=== PATIENT | female | born 1990 | race Caucasian/White ===

== ENCOUNTER 2019-03-02 06:22 | Day surgery (SDC) | payer BC ==
[~2019-03-02] VITALS: Ht 167.6 cm; Wt 102.1 kg
[~2019-03-02 06:22] MED LIST: ACET500; ACYC400 PO; AMIT50; CODACE30; CRUTCH3 USE; DOXY100 PO; FOLI1 PO; GABA800; HYDACE10B PO; HYDACE5; HYDACE5 PO; IBUP600 PO; IBUP800 PO; LYRICA; META800 PO; NAPR375; NAPR500; NAPR500 PO; NAPR550 PO; NITR2TO30 TOP; Norco 5-325 Ta1 EACH PO; OMEP20ER; ORACONB PO; PREG100; PREG150 PO; PRENA1 SOFTGEL1 EACH PO; PROACE100 PO; PROM25 PO; Prenatal Compl1 EACH PO; RANI150 PO; RXHYDACE PO; RXNAPNA550 PO; RXPROACE PO; TRAZ100 PO; TRAZ50 PO; YAZ BCP; Zantac150 MG PO; [UNRECOGNIZED DRUG - OTHER]; [UNRECOGNIZED DRUG - REMARK]; [UNRECOGNIZED DRUG - REMARK]
--- NOTE | 2019-03-02 07:54 | NUR ---
03/02/19 0754 Kim Roca ORSC.JAR LOWER PREP ORSC.JJW UPPER PREP
== END 2019-03-02 09:56 | disposition home or self-care (01) ==
LOC: ORSCSDS 06:22
PROVIDERS: Obstetrics & Gynecology
PROC: 0U5F4ZZ Destruction of Cul-de-sac, Percutaneous Endoscopic Approach (ICD-10-PCS; principal; 2019-03-02 07:30)
PROC: 0UT74ZZ Resection of Bilateral Fallopian Tubes, Percutaneous Endoscopic Approach (ICD-10-PCS; principal; 2019-03-02 07:30)
DX: Z30.2 Encounter for sterilization (principal); N80.3 Endometriosis of pelvic peritoneum; E66.01 Morbid (severe) obesity due to excess calories; Z68.36 Body mass index [BMI] 36.0-36.9, adult
CPT/HCPCS: 88302; J0171; J0690; J1100; J1885; J2250; J2704; J2765; J3010; J7120

== ENCOUNTER 2023-11-17 06:12 | Day surgery (SDC) | payer BC ==
[~2023-11-17] VITALS: Ht 165.1 cm; Wt 110.9 kg
[2023-11-17] VITALS (13 sets, daily range): BP systolic 122–137; BP diastolic 75–97
[2023-11-17] MEDS ORDERED: CeFAZolin Sodium 2,000 MG in NS 100 ML IV SCH (06:25)
[2023-11-17] MEDS ORDERED: Lactated Ringer's 1,000 ML IV SCH ×2 (06:25→11:30)
--- NOTE | 2023-11-17 06:53 | NUR ---
Ambulatory in Day Surgery History, Chart, Medications and Allergies reviewed before start of procedure.Lungs clear T/O to Auscultation. Patient confirms NPO status and agrees with scheduled surgery. Patient reports completing Chlorhexadine shower X2 prior to admission to hospital.Surgical site prepped with 2% Chlorhexidine cloth wipe. Patient States Post-Procedure ride home has been arranged.
[2023-11-17] MEDS ORDERED: propofoL 20 ML IV ONE (07:15)
[2023-11-17] MEDS ORDERED: FentaNYL Citrate 50 MCG/ML 2 ML Injection ONE ×2 (07:15→10:10)
[2023-11-17] MEDS ORDERED: Midazolam HCl 1MG / ML 2ML Vial ONE (07:15)
[2023-11-17] MEDS ORDERED: Rocuronium Bromide 10 MG/ML 5ML Injection IV ONE ×2 (07:16→10:09)
--- NOTE | 2023-11-17 07:23 | NUR ---
#18 PIV PLACED TO RFA-TYPE AND SCREEN SENT. PT TEARFUL DURING IV PLACEMENT-PT STATED THAT THE PAIN SUBSIDED AFTER IV INSERTION.
[2023-11-17] MEDS ORDERED: Bupivacaine 0.5% HCl 5 MG/ML 30MLVIAL ONE (07:34)
--- NOTE | 2023-11-17 07:44 | NUR ---
PT BELONGINGS GIVEN TO HER SPOUSE SCARLET. PT CONTACTS REMAIN IN HER EYES DR. LONG GAVE PT THE OK TO DO SO.
[2023-11-17] MEDS ORDERED: Dexamethasone Sod Phos 10 MG/ML 1ML VIAL ONE (08:17)
[2023-11-17] MEDS ORDERED: Ondansetron HCl 2 MG / ML 2ML Vial ONE (08:17)
[2023-11-17] MEDS ORDERED: Ketorolac Tromethamine 30mg Vial ONE (10:09)
[2023-11-17] MEDS ORDERED: Sugammadex Sodium 200 MG/2ML SDV (100 MG/ML) ONE (10:40)
[2023-11-17] MEDS ORDERED: HYDROmorphone HCl/Pf 1MG SYR ONE ×2 (11:06→11:39)
[2023-11-17] MEDS ORDERED: HYDROmorphone HCl/Pf 1MG SYR IV PRN (11:25)
[2023-11-17] MEDS ORDERED: Simethicone 80 MG Chew PO PRN (11:25)
[2023-11-17] MEDS ORDERED: Ondansetron HCl 2 MG / ML 2ML Vial IV PRN (11:30)
[2023-11-17] MEDS ORDERED: Promethazine HCl 12.5 MG Supp PR PRN (11:30)
[2023-11-17] MEDS ORDERED: Naloxone HCl 0.4MG / ML 1ML Vial IV PRN (11:30)
[2023-11-17] MEDS ORDERED: Ondansetron 4 MG TAB PO PRN (11:30)
[2023-11-17] MEDS ORDERED: HYDROcodone 5-APAP 325 TAB PO PRN (11:30)
[2023-11-17] MEDS ORDERED: Promethazine HCl 25 MG Tab PO PRN (11:35)
[2023-11-17] MEDS ORDERED: Ketorolac Tromethamine 30mg Vial IV SCH (12:00)
--- NOTE | 2023-11-17 12:46 | NUR ---
POST-OP PATIENT ARRIVAL TO ROOM @ 1145, LAP SCITES X4 WITH WOUND GLUE CLOSURE. C/D/I. PATIENT REQUESTING CATHETER TO BE REOMVED. EMPTIED OUT 400ML FROM BAG AND DC'D. PATIENT TRIED TO VOID AND WAS UNSUCCESSFUL. PATIENT REPORTS HIGH PAIN AND NAUSEA MEDICATED AND NOW RESTING COMFORTABLY. VSS. CALL LIGHT IN REACH, IV FLUIDS RUNNING.
[2023-11-17] MEDS ORDERED: CeFAZolin Sodium 2,000 MG in NS 100 ML IV ONE (14:00)
--- NOTE | 2023-11-17 16:40 | NUR ---
SHIFT SUMMARY PATIENT AOX4, TOLERATES PO INTAKE. DENIES N/V, PAIN IS WELL MANAGED. PATIENT UP VOIDING X2 THIS SHIFT. ABD BINDER PLACED AND WALKING IN HALLS. IV IS SALINE LOCKED. SCDS IN PLACE, AND CALL LIGHT IN REACH. VITALS ARE STABLE. SPOUSE IN ROOM FOR SUPPORT. LAP SCITES ARE C/D/I. SCANT DRNG ON PERIPAD.
[2023-11-17] MEDS ORDERED: SIME80CH PO (18:40)
[2023-11-17] MEDS ORDERED: PROM25 PO (18:40)
== END 2023-11-17 19:00 | disposition home or self-care (01) ==
LOC: ORSCMMR 06:12 → ORD 08:00 → ORSCMMR 08:00 → SURS 11:36 → ORSCMMR 19:00
PROVIDERS: Obstetrics & Gynecology
PROC: 0U5F4ZZ Destruction of Cul-de-sac, Percutaneous Endoscopic Approach (ICD-10-PCS; principal; 2023-11-17 08:00)
PROC: 0UT9FZZ Resection of Uterus, Via Natural or Artificial Opening With Percutaneous Endoscopic Assistance (ICD-10-PCS; principal; 2023-11-17 08:00)
PROC: 0UT0FZZ Resection of Right Ovary, Via Natural or Artificial Opening With Percutaneous Endoscopic Assistance (ICD-10-PCS; principal; 2023-11-17 08:00)
DX: N80.03 Adenomyosis of the uterus (principal); N80.9 Endometriosis, unspecified; N92.1 Excessive and frequent menstruation with irregular cycle; N94.6 Dysmenorrhea, unspecified; N94.10 Unspecified dyspareunia; R10.2 Pelvic and perineal pain; E66.01 Morbid (severe) obesity due to excess calories; Z68.41 Body mass index [BMI] 40.0-44.9, adult; J45.909 Unspecified asthma, uncomplicated; M85.88 Other specified disorders of bone density and structure, other site
CPT/HCPCS: 86850; 86900; 86901; 88305; 88307; A9270; J0690; J1100; J1170; J1885; J2250; J2405; J2704; J3010; J7120